=== PATIENT | female | born 1965 | race Caucasian/White ===

== ENCOUNTER 2020-02-14 10:48 | Outpatient (CLI) | payer OTHER, SELFPAY ==
--- NOTE | 2020-02-14 11:31 | MM_ITS ---
WS: [id number] DIAGNOSTIC RIGHT DIGITAL MAMMOGRAM WITH CAD RIGHT breast ultrasound, limited HISTORY: RIGHT FU 6 MON FOLLOWUP COMPARISON: 08/30/2019, 08/02/2019, 11/09/2016 Technique: CC, MLO and ML views. A compression RIGHT MLO and cc. Breast composition: There are scattered areas of fibroglandular density. Ovoid asymmetry posterior t o the RIGHT nipple persists without increase in size now measuring 5 x 8 mm. No additional abnormalit y. RIGHT breast ultrasound, limited. Ultrasound directed to the 12:00 axis, 1 cm from the nipple. There is an ovoid hypoechoic nodule yelena uring 8 x 4 mm. No increased vascularity. Similar in appearance to the prior study. There is a thin s eptation or this may be 2 cysts together. MM/[place] [id number] IMPRESSION: BI-RADS: 3-Probably Benign FOLLOW UP: 6 Month Follow-up Anticipate bilateral mammogram in July 2020. Ultrasound should be performe d of the RIGHT breast hypoechoic nodule at that time to document continued long -term stability.
== END 2020-02-14 10:49 | disposition home or self-care (01) ==
LOC: RADSHAW 10:48
PROVIDERS: Family Provider Family Medicine; PCP Family Medicine; Visit Provider Obstetrics & Gynecology
DX: R92.8 Other abnormal and inconclusive findings on diagnostic imaging of breast (principal); N63.10 Unspecified lump in the right breast, unspecified quadrant
CPT/HCPCS: 76642; 77065

== ENCOUNTER 2020-11-09 14:49 | Outpatient (CLI) | payer OTHER, SELFPAY ==
--- NOTE | 2020-11-09 15:00 | US_ITS ---
WS: [id number] BILATERAL DIGITAL DIAGNOSTIC MAMMOGRAM MAMMOGRAPHY WITH CAD CLINICAL INFORMATION: 6 MO F/U OVOID HYPOECHOIC AREA COMPARISON: February 14, 2020 TECHNIQUE: Bilateral CC, MLO, and ML views. FINDINGS: Scattered fibroglandular densities bilaterally. Previously described ovoid asymmetry posterior nipple measuring approximately 8 mm is not well seen today. No new abnormalities. Lucent centered calcifica tions. Left breast is unchanged in appearance. ULTRASOUND BREAST RIGHT TECHNIQUE: Ultrasound right breast focused area of concern. CLINICAL INFORMATION: 6 MO F/U OVOID HYPOECHOIC AREA COMPARISON: February 14, 2020 FINDINGS: Ultrasound right breast 12:00 position. Again seen is the small bilobed cyst at the 12:00 position me asuring 7.9 x 8.1 x 2.7 mm. This has a benign appearance. Recommend return to annual screening mammog randell. US/US breast RT limited* [id number] IMPRESSION: BI-RADS: 2-Benign FOLLOW UP: 1 Year Follow-up Recommend return to annual screening mammography.
--- NOTE | 2020-11-09 15:40 | MM_ITS ---
WS: [id number] BILATERAL DIGITAL DIAGNOSTIC MAMMOGRAM MAMMOGRAPHY WITH CAD CLINICAL INFORMATION: 6 MO F/U OVOID HYPOECHOIC AREA COMPARISON: February 14, 2020 TECHNIQUE: Bilateral CC, MLO, and ML views. FINDINGS: Scattered fibroglandular densities bilaterally. Previously described ovoid asymmetry posterior nipple measuring approximately 8 mm is not well seen today. No new abnormalities. Lucent centered calcifica tions. Left breast is unchanged in appearance. ULTRASOUND BREAST RIGHT TECHNIQUE: Ultrasound right breast focused area of concern. CLINICAL INFORMATION: 6 MO F/U OVOID HYPOECHOIC AREA COMPARISON: February 14, 2020 FINDINGS: Ultrasound right breast 12:00 position. Again seen is the small bilobed cyst at the 12:00 position me asuring 7.9 x 8.1 x 2.7 mm. This has a benign appearance. Recommend return to annual screening mammog randell. MM/[place] [id number] IMPRESSION: BI-RADS: 2-Benign FOLLOW UP: 1 Year Follow-up Recommend return to annual screening mammography.
== END 2020-11-09 14:50 | disposition home or self-care (01) ==
PROVIDERS: PCP Family Medicine; Visit Provider Obstetrics & Gynecology
DX: Z12.39 Encounter for other screening for malignant neoplasm of breast (principal); N60.01 Solitary cyst of right breast
CPT/HCPCS: 76642; 77066

== ENCOUNTER → 2021-01-21 09:45 | Outpatient (BNVA) | payer OTHER, SELFPAY | PROVIDERS: PCP Family Medicine; Visit Provider Obstetrics & Gynecology | DX: N87.0 Mild cervical dysplasia (principal) | CPT/HCPCS: 88175 ==

== ENCOUNTER 2021-02-12 15:22 | Outpatient (CLI) | payer OTHER, SELFPAY ==
--- NOTE | 2021-02-12 15:42 | USCV_ITS ---
Shabnam Loomis Age: 55 Gender: F : 1965 Exam Date: 02/12/2021 15:48 Ordering Phys: Torito Quinn MD Technologist: Ute Irving Exam Location: [facility] [place] Indication: BRADYCARDIA BP: / HR: 55 Rhythm: Other Technical Quality: Adequate MEASUREMENTS (Male / Female) Normal Values 2D ECHO LV Diastolic Diameter PLAX 4.2 cm 4.2 - 5.9 / 3.9 - 5.3 cm LV Systolic Diameter PLAX 3.3 cm LV Chamber Size 4.2 cm IVS Diastolic Thickness 1.1 cm 0.6 - 1.0 / 0.6 - 0.9 cm IVS Systolic Thickness 1.3 cm LVPW Diastolic Thickness 1.7 cm 0.6 - 1.0 / 0.6 - 0.9 cm LVPW Systolic Thickness 2.0 cm RV Chamber Size 2.3 cm LVOT Diameter 2.0 cm LV Ejection Fraction 2D Teich 41.9 % LV Ejection Fraction MOD 2C 44.4 % LV Ejection Fraction 2C AL 44.8 % LA Diameter 2.4 cm LA Width 3.5 cm LA Height 3.8 cm RA Width 2.1 cm RA Height 3.7 cm Aorta at Sinotubular Diameter 2.2 cm M-MODE LV Diastolic Diameter MM 5.5 cm 4.2 - 5.9 / 3.9 - 5.3 cm LV Systolic Diameter MM 4.3 cm LV Ejection Fraction MM Teich 42.8 % IVS Diastolic Thickness MM 0.9 cm 0.6 - 1.0 / 0.6 - 0.9 cm IVS Systolic Thickness MM 0.9 cm LVPW Diastolic Thickness MM 1.0 cm 0.6 - 1.0 / 0.6 - 0.9 cm LVPW Systolic Thickness MM 1.3 cm Aortic Annulus Diameter 2.6 cm LA Ao Ratio MM 0.9 MV E Point Septal Separation 1.0 cm DOPPLER AV Peak Velocity 161.0 cm/s LVOT Peak Velocity 149.0 cm/s AV Area Cont Eq vti 2.7 cm squared AV Area Cont Eq pk 2.9 cm squared MV Area PHT 5.8 cm squared Mitral E to A Ratio 0.8 MV E' Velocity 52.5 cm/s Mitral E to MV E' Ratio 5.9 Mitral E to LV E' Lateral Ratio 6.7 Mitral E to LV E' Septal Ratio 5.3 TR Peak Velocity 237.0 cm/s TR Peak Gradient 22.5 mmHg TV Peak E Velocity 43.0 cm/s Right Atrial Pressure 3.0 mmHg Pulmonary Artery Systolic Pressu 25.5 mmHg PV Peak Velocity 87.0 cm/s RV Acceleration Time 0.2 s RV Ejection Time 0.4 s RV AcT/ET 0.4 FINDINGS Left Ventricle Normal LV size with a diminished ejection fraction of 35 to 40%. Diffuse hypokinesia of the left ventricle Right Ventricle The right ventricle is normal in size and function. Right Atrium The right atrium is normal in size. Left Atrium The left atrium is normal in size. Mitral Valve Thickened mitral valve. Mild mitral annular calcification. Mild mitral valve regurgitation. Aortic Valve Thickened aortic valve. Trace aortic valve regurgitation. Tricuspid Valve Mild tricuspid valve regurgitation. Pulmonic Valve Pulmonic valve not well visualized. Pericardium Normal pericardium without effusion. Aorta Normal ascending aorta dimension. CONCLUSIONS Normal LV size with a diminished ejection fraction of 35 to 40%. Diffuse hypokinesia of the left ventricle. Thickened mitral valve. Mild mitral annular calcification. Mild mitral valve regurgitation. Thickened aortic valve. Trace aortic valve regurgitation. Mild tricuspid valve regurgitation. Estimated pulmonary artery peak systolic pressure 26 mmHg There is no pericardial effusion. There are no intracardiac masses. No previous study is available for comparison. Dr Santosh Schaeffer MD FAC (Electronically Signed) Final Date: 13 February 2021 10:18 S
== END 2021-02-12 15:23 | disposition home or self-care (01) ==
LOC: US 15:26
PROVIDERS: PCP Family Medicine; Visit Provider Family Medicine
DX: R00.1 Bradycardia, unspecified (principal); I08.3 Combined rheumatic disorders of mitral, aortic and tricuspid valves
CPT/HCPCS: 93306

== ENCOUNTER → 2021-02-15 11:53 | Outpatient (BNVA) | payer OTHER, SELFPAY | PROVIDERS: PCP Family Medicine; Visit Provider Obstetrics & Gynecology | DX: R87.810 Cervical high risk human papillomavirus (HPV) DNA test positive (principal) | CPT/HCPCS: 88305 ==

== ENCOUNTER → 2021-04-23 09:11 | Outpatient (BNVA) | payer OTHER, SELFPAY | PROVIDERS: PCP Family Medicine; Visit Provider Internal Medicine | DX: I50.20 Unspecified systolic (congestive) heart failure (principal); I10 Essential (primary) hypertension; I49.3 Ventricular premature depolarization | CPT/HCPCS: 80048; 85025; 85610; 87635 ==

== ENCOUNTER 2021-04-29 06:38 | Day surgery (SDC) | payer OTHER, SELFPAY ==
[2021-04-28 09:10] VITALS: BMI 27.2
[2021-04-29] VITALS (14 sets, daily range): BP systolic 101–165; BP diastolic 50–100; PULSE 65–101; RESP 18–23; TEMP 36.2; O2SAT 96–100; BMI 27.2
--- NOTE | 2021-04-29 06:00 | XACV_ITS ---
Ht: 157 cm Wt: 68 kg BSA: 1.74 m2 Gender: Female : 1965 Any Known Allergies: Other Exam Priority: Routine Procedure(s): Procedure Description: Diagnostic procedure Procedure Description: Left Heart Catheterization Procedure Description: Right Heart Catheterization Procedure Description: Left ventriculography Procedure Description: O2 saturation Procedure Description: Coronary Angiography Diagnostic Cath Status: Elective Diagnostic Findings * Right heart cath: RA: 7 mmHg PCW: 14 mmHg RV: 34/1012 PA: 35/10/06 Ao sat: 93% PA sat: 65%. * No disease noted in the Left Main, Left Anterior Descending, Right, or Circumflex coronary arteries. * Coronary angiography shows right dominance. Conclusions 1. Normal right and left-sided cardiac pressures. 2. Nonischemic cardiomyopathy. 3. No disease noted in the Left Main, Left Anterior Descending, Right, or Circumflex coronary arteries. 4. Moderate left ventricular systolic dysfunction. Ejection fraction of 30%. Recommendations * Aggressive guideline directed medical therapy for heart failure. * Outpatient cardiology follow-up in 1 month. Diagnostic RX Recommendation: medical therapy and/or counseling Anticoagulation: Heparin Ventriculography Ejection Fraction: 30.0 % Pressures Phase:Rest AO : 172 / 90 ( 120 ) @ 7:22:00 AM 183 / 88 ( 124 ) @ 7:31:00 AM LV : 186 / -1 / 21 @ 7:29:00 AM 181 / 0 / 23 @ 7:30:00 AM RV : 34 / 10 / 12 @ 7:09:00 AM PA : 35 / 11 ( 24 ) @ 7:08:00 AM RA : a wave = 8 v wave = 7 mean = 7 @ 7:10:00 AM PCW : a wave = 18 v wave = 20 mean = 14 @ 7:07:00 AM O2 Content Phase:Rest PA : O2 Content O2: 65.3 @ 7:22:00 AM Saturations Phase:Rest AO : 93 @ 7:31:00 AM PA : 65 @ 7:22:00 AM Cardiac Output Phase:Rest Shana : 4 @ 8:44:56 AM Shana Cardiac Index: 2 @ 8:44:56 AM Flow Phase:Rest Qp : 4 @ 8:44:56 AM Qs : 4 @ 8:44:56 AM Clinical Evaluation EBL: 5mL-10mL Procedural Details Pre-Procedure Time Out. Identified patient by full name and date of as verbalized by the patient/guarantor. Does the consent match the physician's order: Yes. Accurate & Complete Informed Consent: Yes. Inpatient/Outpatient History & Physical on Chart: Yes. If H&P is completed, is and addenduem needed: No; If yes, is the addendum complete: N/A. Visualize and Verify Site with Patient/Guarantor: N/A. Relevant Radiology Images available: N/A. Pre-op teaching completed and patient verbalized understanding. The risks, benefits, and alternatives of sedation and/or procedure were discussed by physician. The patient agrees to continue. Procedure started. Physician arrived. 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 Chest Pain Symptom Assessment: Atypical Angina. Cardiovascular Instability: No. Correct patient, site and procedure confirmed by cath team. PERRLA. Strong, equal hand microwave supervisor bilaterally. Lungs clear x 5 lobes. IV Site on Arrival: 20 gauge in the left hand. IV Site on Arrival: 18 gauge in the right anticubital. IV Fluids: 0.9% NaCl at KVO. 0 mL infused prior to director of labor and delivery. Pre Procedural Pulses: bilateral dorsalis pedis was 3+. Pre Procedural Pulses: right posterior tibial was Doppled. Pre Procedural Pulses: left posterior tibial was 3+. Pre Procedural Pulses: bilateral radial was 2+. Equipment: 6F - Radial. Cardiac Cath Pack. ACIST Manifold Kit Model BT 2000. Heparinized Saline (2 units/mL), 1000 mL bag. Baseline sample Acquired. HR: 61 BPM. right brachial was prepped with chloroprep then draped in the usual sterile fashion. right groin was prepped with chloroprep then draped in the usual sterile fashion. right radial was prepped with chloroprep then draped in the usual sterile fashion. Physician scrubbed in. Immediate Pre-Procedure Time Out. Correct Patient: Yes; Correct Procedure: Yes; Correct Site: Yes; Correct Patient Position: Yes; Correct Supplies: Yes; Dried Flammable Prep: Yes; Blood Products Available: N/A;. Wire inserted into IV catheter in right brachial vein. Lidocaine 1% infiltrated to the right brachial. IV catheter removed over wire. [place] MON catheter inserted. [place] out. Lidocaine 1% infiltrated to the right radial. Lidocaine 1% infiltrated to the right radial. Arterial access obtained. A 5 honduran TIG catheter in over wire. Multiple views taken of left coronary artery. Catheter redirected to the RCA. Catheter removed over the exchange wire. A 5 honduran Angled Pig catheter in over wire. EDP Sample taken: LV 186/-2,21; HR: 75 BPM; SpO2: 98%. LV gram performed in TAYLOR @ 10 mL/second for a total of 30 mL. EDP Sample taken: LV 181/0,23; HR: 80 BPM; SpO2: 98%. Pullback taken: LV Off; AO Off; Mean: , Peak to Peak: , SEP: ; HR: 79 BPM; SpO2: 98%. Catheter removed over the exchange wire. Physician scrubbed out. A Manual Compression was successful obtaining hemostatsis at the Right Brachial Vein insertion site. A TR Band was successful obtaining hemostatsis at the Right Radial artery insertion site. TR band placed. Hemostasis obtained. Sheath(s) removed and manual pressure held until hemostasis was achieved. Sterile 4x4 and Op-site applied to the puncture site. No oozing or hematoma noted. Post sheath removal instructions were given and the patient verbalized understanding. Post Procedure: Pulses reassessed and unchanged. PERRLA. Strong, equal hand microwave supervisor bilaterally. No VTE prophylaxis required. Medication's Wasted: Lidocaine 1% = 10 mL. Medication's Wasted: Nitro = 49.8 mg. Medication's Wasted: Heparin = 1000 units. Total IV fluids: 75 mL. Contrast type used: Omnipaque 300 mgI/mL, 500 mL bottle. Post-op diagnosis: non ischemic cardiomyopathy. Complications: none. Estimated blood loss: 5mL-10mL. Procedure completed. Patient transferred by wheelchair to CPRU. Vital chart was stopped. Access Site Site: Right Brachial Vein Sheath Size: 6 Fr Hemostasis Method: Manual Compression Hemostasis Success: Successful Site: Right Radial artery Sheath Size: 6 Fr Hemostasis Method: TR Band Hemostasis Success: Successful Procedure Medications Start: 7:41 AM Stop: 7:41 AM Medication: Aspirin Amount: 325 mg Route: P.O. Start: 7:48 AM Stop: 7:48 AM Medication: Benadryl Amount: 50 mg Route: I.V. Start: 7:49 AM Stop: 7:49 AM Medication: Versed Amount: 1 mg Route: I.V. Start: 7:50 AM Stop: 7:50 AM Medication: Fentanyl Amount: 50 mcg Route: I.V. Start: 7:52 AM Stop: 7:52 AM Medication: Versed Amount: 1 mg Route: I.V. Start: 8:18 AM Stop: 8:18 AM Medication: Nitrogylcerin Amount: 200 mcg Route: I.A. Start: 8:21 AM Stop: 8:21 AM Medication: Heparin Amount: 5000 units Route: I.V. Start: 8:34 AM Stop: 8:34 AM Medication: Fentanyl Amount: 50 mcg Route: I.V. I, the attending physician, have reviewed and verified all procedure medications. Yes, all medications given per verbal order History/Risk Factors Hypertension: Yes Dyslipidemia: No Peripheral Arterial Disease (PAD): No Myocardial Infarction (ME): No Obesity: No Renal Disease: No Tobacco Use: Never Prior Interventions PCI: No CABG: No Valve Surgery: No Report Signatures Finalized by John Castellon MD on 05/13/2021 08:57 PM
--- NOTE | 2021-04-29 07:43 | P.HP_ITS ---
Same Day Surgery H&P Indication for Procedure/HPI DATE OF PROCEDURE: April 29, 2021 CHIEF COMPLAINT/INDICATIONFOR SURGICAL PROCEDURE: New onset heart failure with reduced ejection fraction PREOP DIAGNOSIS: New onset heart failure with reduced ejection fraction PLANNED PROCEDRUE: Operation Date: 04/29/21 07:00 Proposed Procedures p Cardiac Catheterization 70998 I50.9 left and right(Bilateral) - John Castellon M.D Right heart catheterization Possible percutaneous coronary intervention 55-year-old woman with past medical history of hypertension who was referred because of new onset heart failure. Patient was having dyspnea on exertion and lower extremity edema. Echocardiogram revealed EF of 35 to 40% with diffuse hy pokinesis. Her EKG demonstrates frequent PVCs. She underwent Holter monitoring that showed frequent PVCs with no significant arrhythmias. In the recent past she had noted chest pain episodes but no active chest pain. Plan for a right and left heart cath to assess heart failure. ROS CONSTITUTIONAL: No fever chills weight loss or gain or night sweats. [] HEENT: Normocephalic, atraumatic.[] RESPIRATORY: No cough, sputum, hemoptysis or wheezing.[] CARDIOVASCULAR: No shortness of breath, chest pain, PND, orthopnea, lower extremity edema, presyncope or syncope. [] GI: no nausea vomiting diarrhea. 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 [] MUSCULOSKELETAL: No knee or joint pain or rashes. [] Medications/Allergies* Home Medications Medication Instructions Recorded Confirmed Type amlodipine 10 mg tablet 10 mg PO DAILY 01/21/21 04/29/21 History paroxetine HCl 10 mg tablet 10 mg PO DAILY 01/21/21 04/29/21 History venlafaxine 150 mg 150 mg PO BID cap 01/21/21 04/29/21 History capsule,extended release 24 hr venlafaxine 75 mg capsule,extended 75 mg PO .COMPLEX 01/21/21 04/29/21 History release 24 hr Allergies/Adverse Reactions Allergy/AdvReac Type Severity Reaction Status Date / Time tetracycline Allergy Rash Verified 04/28/21 09:10 Pertinent History/Comorbid Conditions* Medical History (Updated 03/26/21 @ 20:45 by John Castellon M.D) Depression Hypertension OCD (obsessive compulsive disorder) Surgical History (Updated 01/23/21 @ 15:13 by Fidel Sousa MD) History of bilateral tubal ligation (~1999) . Performed at [facility]. S/P laparoscopy (~1993) Infertility evaluation. Family History (Updated 01/21/21 @ 14:45 by Chau Sousa) Brother AIDS Brother Diabetes Grandfather Paternal. Type II. Daughter Type I. Heart disease Grandfather Maternal Hyperlipidemia Mother Neuropathy Brother Lung cancer Brother Hypertension Mother Father Social History Smoking and tobacco status: never smoked Alcohol intake: current Alcohol intake frequency: few times a week Pertinent Exam Findings alert, oriented x 3, clear to auscultation bilaterally and regular rate & rhythm Conscious Sedation Assessment PATIENT ASSESSED PRIOR TO SEDATION, WITH NO CHANGE NOTED: Yes AIRWAY EVAL/ANESTHESIA PLAN: normal airway, see other exam findings, ASA III, Monitored Anesthesia, Local Anesthesia, Risks, benefits & alternatives of sedation and/or procedure discussed and Patient agrees to continue as planned Recommendations Surgery/Procedure today (Right heart cath+ left heart cath+ possible percutaneous coronary intervention) Coding Level of Care Code Acute 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
--- NOTE | 2021-04-29 08:50 | PC.NURSE ---
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 pt complains of no pain. pt alert and oriented x4, pt has been educated and will continue to re-educate throughout recovery about restrictions of right wrist. pt has tr band on right wrist, no bruising or hematoma noted, distal pulse palpated. pt placed on monitor for vitals protocol. bed down and locked, side table near bed and call light within reach. pt given diet coke and breakfast tray to eat.
== END 2021-04-29 12:38 | disposition home or self-care (01) ==
PROVIDERS: PCP Family Medicine; Visit Provider Internal Medicine
DX: I11.0 Hypertensive heart disease with heart failure (principal); I50.9 Heart failure, unspecified; F32.9 Major depressive disorder, single episode, unspecified; Z82.49 Family history of ischemic heart disease and other diseases of the circulatory system; Z83.3 Family history of diabetes mellitus
CPT/HCPCS: 36415; 93453; C1751; C1769; C1887; C1894; J1200; J1644; J2250; J3010; J3490; J7030; J7050; Q9967

== ENCOUNTER 2021-11-10 13:25 | Outpatient (CLI) | payer OTHER, SELFPAY ==
--- NOTE | 2021-11-10 13:30 | USCV_ITS ---
Shabnam Loomis Age: 56 Gender: F : 1965 Exam Date: 11/10/2021 14:22 Ordering Phys: John Castellon M.D ([email or web address]) Technologist: Latonia Mendoza Exam Location: [facility] [place] Indication: chf BP: / HR: 56 Rhythm: Sinus Technical Quality: Adequate MEASUREMENTS (Male / Female) Normal Values 2D ECHO LV Diastolic Diameter PLAX 4.9 cm 4.2 - 5.9 / 3.9 - 5.3 cm LV Systolic Diameter PLAX 3.5 cm LV Chamber Size 4.4 cm IVS Diastolic Thickness 0.9 cm 0.6 - 1.0 / 0.6 - 0.9 cm IVS Systolic Thickness 1.3 cm LVPW Diastolic Thickness 1.1 cm 0.6 - 1.0 / 0.6 - 0.9 cm LVPW Systolic Thickness 1.6 cm RV Chamber Size 2.8 cm LVOT Diameter 2.1 cm LV Ejection Fraction 2D Teich 54.0 % LV Ejection Fraction MOD 2C 42.6 % LV Ejection Fraction 2C AL 45.8 % LA Diameter 2.7 cm LA Width 2.5 cm LA Height 4.2 cm RA Width 2.6 cm RA Height 3.8 cm Aorta at Sinotubular Diameter 2.4 cm M-MODE Aortic Annulus Diameter 2.8 cm LA Ao Ratio MM 1.1 MV E Point Septal Separation 1.0 cm DOPPLER AV Peak Velocity 125.0 cm/s LVOT Peak Velocity 62.3 cm/s AV Area Cont Eq vti 1.5 cm squared AV Area Cont Eq pk 1.7 cm squared MV Area PHT 2.4 cm squared Mitral E to A Ratio 1.0 MV E' Velocity 49.0 cm/s Mitral E to MV E' Ratio 11.2 Mitral E to LV E' Lateral Ratio 21.3 Mitral E to LV E' Septal Ratio 7.6 TR Peak Velocity 180.5 cm/s TR Peak Gradient 13.0 mmHg TR Mean Velocity 93.4 cm/s TR Mean Gradient 5.2 mmHg TR Velocity Time Integral 41.3 cm TV Peak E Velocity 53.0 cm/s PV Peak Velocity 43.0 cm/s RV Acceleration Time 0.1 s RV Ejection Time 0.4 s RV AcT/ET 0.3 FINDINGS Left Ventricle Normal left ventricular size. LV systolic function is borderline low with EF of 45-50%. Borderline global hypokinesis. Right Ventricle The right ventricle is normal in size and function. Right Atrium The right atrium is normal in size. Left Atrium The left atrium is normal in size. Mitral Valve Thickened mitral valve without significant stenosis or prolapse. There is mild mitral regurgitation. Aortic Valve Thickened aortic valve without significant stenosis. There is mild aortic regurgitation. Tricuspid Valve Structurally normal tricuspid valve without significant stenosis. Mild tricuspid regurgitation. Insufficient TR jet to calculate RVSP. Pulmonic Valve Not well visualized Pericardium Normal pericardium without effusion. Aorta Normal ascending aorta dimension. CONCLUSIONS LV systolic function is borderline low with EF of 45 to 50%. Borderline Global hypokinesis. Mild mitral regurgitation. Mild aortic regurgitation. Mild tricuspid regurgitation. Compared to prior echocardiogram from 02/12/2021, LV systolic function appears to have improved and EF is 45-50% now John Castellon MD (Electronically Signed) Final Date: 11 November 2021 10:55 S
== END 2021-11-10 13:26 | disposition home or self-care (01) ==
LOC: RAD 13:38
PROVIDERS: PCP Family Medicine; Visit Provider Internal Medicine
DX: I50.9 Heart failure, unspecified (principal); I08.3 Combined rheumatic disorders of mitral, aortic and tricuspid valves
CPT/HCPCS: 93306

== ENCOUNTER 2021-11-24 15:12 | Outpatient (CLI) | payer OTHER, SELFPAY ==
--- NOTE | 2021-11-24 15:18 | MM_ITS ---
WS: [id number] BILATERAL DIGITAL SCREENING MAMMOGRAPHY WITH CAD CLINICAL INFORMATION: SCREENING HISTORY: Screening mammogram. No current complaints. COMPARISON: November 09, 2020 TECHNIQUE: Bilateral CC and MLO views. FINDINGS: Scattered fibroglandular densities bilaterally. Punctate and lucent centered calcifications. Vascular calcification. No suspicious focal mass, asymmetry, calcifications, or architectural distortion. No evidence of malignancy. MM/[place] [id number] IMPRESSION: BI-RADS: 2-Benign FOLLOW UP: 1 Year Follow-up Recommend return to annual screening mammography.
== END 2021-11-24 15:13 | disposition home or self-care (01) ==
LOC: RADSHAW 15:18
PROVIDERS: PCP Family Medicine; Visit Provider Family Medicine
DX: Z12.31 Encounter for screening mammogram for malignant neoplasm of breast (principal)
CPT/HCPCS: 77067

== ENCOUNTER → 2022-08-26 15:22 | Outpatient (BNVA) | payer OTHER, SELFPAY | PROVIDERS: PCP Family Medicine; Visit Provider Obstetrics & Gynecology | DX: Z12.4 Encounter for screening for malignant neoplasm of cervix (principal); B97.7 Papillomavirus as the cause of diseases classified elsewhere | CPT/HCPCS: 87624 ==

== ENCOUNTER → 2022-09-26 13:26 | Outpatient (BNVA) | payer OTHER, SELFPAY | PROVIDERS: PCP Family Medicine; Visit Provider Obstetrics & Gynecology | DX: R87.611 Atypical squamous cells cannot exclude high grade squamous intraepithelial lesion on cytologic smear of cervix (ASC-H) (principal) | CPT/HCPCS: 88305 ==

== ENCOUNTER 2022-10-12 12:19 | Day surgery (SDC) | payer OTHER, SELFPAY ==
[2022-10-12] VITALS (7 sets, daily range): BP systolic 152–168; BP diastolic 86–100; PULSE 58–94; RESP 14–20; TEMP 36.5–36.8; O2SAT 97–100
[2022-10-12 13:18] LABS: Basophils % 0.5 %; Eosinophils # 0.2 10^3/uL (0.0-0.8); Eosinophils % 2.6 %; Hematocrit 41.3 % (37.0-47.0); Hemoglobin 13.8 g/dL (11.5-15.3); Lymphocytes # 1.8 10^3/uL (0.8-4.8); Lymphocytes % 27.4 %; Mean Corpuscular HGB Conc 33.4 g/dL (30.0-36.0); Mean Corpuscular Hemoglobin 30.5 pg (28.0-34.0); Mean Corpuscular Volume 91.4 fl (81-99); Mean Platelet Volume 9.4 fL (7.4-10.4); Monocytes # 0.4 10^3/uL (0.2-0.9); Monocytes % 6.5 %; Neutrophils # 4.04 10^3/uL (1.8-7.7); Neutrophils % 62.7 %; Nucleated Red Blood Cells % 0 %; Platelet Count 260 10^3/cmm (130-400); Red Blood Count 4.52 10^6/uL (4.1-5.3); Red Cell Distribution Width 13.5 % (12.1-15.1); White Blood Count 6.5 10^3/uL (4.0-10.0)
[2022-10-12] MEDS: sodium chloride 0.9% 500 ML IV (13:20)
[2022-10-12] MEDS: sodium chloride 0.9% 1,000 ML 30 ML IV (13:20)
[2022-10-12 13:28] LABS: Add Urine Microscopic? YES; Bilirubin Urine Neg (Negative); Blood Urine Neg (Negative); Glucose Urine UA Norm (Normal); Ketones Urine Negative (Negative); Leukocyte Esterase Urine Trace (Negative); Nitrate Urine Negative (Negative); Protein Urine 1+ (Negative); Urine Appearance Clear (CLEAR); Urine Color Yellow (Yellow); Urobilinogen Urine Norm (Negative); pH Urine 6 (5-7)
[2022-10-12 13:29] LABS: Add Urine Culture? No; Bacteria Urine TRACE /hpf; Squamous Epithelial Cell Urine 15-25 /hpf (0-5); WBC Urine 0-4 /hpf (0-5)
[2022-10-12 13:35] LABS: Alanine Aminotransferase 15 U/L (0-33); Albumin Level 4.5 g/dL (3.5-5.2); Alkaline Phosphatase 94 U/L (35-105); Anion Gap 14.2 (5-19); Aspartate Amino Transferase 17 U/L (0-32); Blood Urea Nitrogen 13 mg/dL (6-20); Calcium 9.9 mg/dL (8.5-10.5); Carbon Dioxide 26 mmol/L (22-29); Chloride 106 mmol/L (98-107); Globulin 3.2 g/dL (1.3-4.6); Glomerular Filtration Rate 64.3 mL/min (90-130); Glucose 89 mg/dL (65-115); Osmolality Calculated 294 mOsm/kg (285-295); Potassium 4.2 mmol/L (3.5-5.1); Sodium 142 mmol/L (136-145); Total Bilirubin 0.2 mg/dL (0.15-1.2); Total Protein 7.7 g/dL (6.6-8.7)
--- NOTE | 2022-10-12 13:40 | P.ANESASSM_ITS ---
Pre-Anesthetic Assessment Height/Weight: Height 1.57 m Weight 63.503 kg Temp Pulse Resp BP Pulse Ox O2 Del Method 98.1 F 58 L 18 167/100 97 10/12/22 12:43 10/12/22 12:43 10/12/22 12:43 10/12/22 12:43 10/12/22 12:43 10/12/22 12:44 Preop Diagnosis: Abnormal Pap: Atypical squamous cells cannot exclude high-grade Operation Date: 10/12/22 14:05 Proposed Procedures p Cervical cone biopsy 56517 R87.611(Not Applicable) - Tao Gutierrez MD Familial anesthetic complications: None Was Beta Augustina taken within 24 hours: N/A Was Clonidine taken within 24 hours: N/A Last intake: Intake Last Liquid Date 10/11/22 Last Liquid Time 22:00 Last Solid Date 10/11/22 Last Solid Time 19:00 Social No alcohol and No tobacco Exam alert, oriented x 3, clear to auscultation bilaterally and regular rate & rhythm Airway Mallampati: Class II Dentition: full CV/HEM Congestive Heart Failure (EF 45% able to achieve 4 METS), Hypertension and Palpitations Anesthetic Plan ASA status: 3 Anesthesia: General Risk of > 500 ml blood loss (7ml/kg in children): No Medications/Allergies Home Medications Medication Instructions Recorded Confirmed Last Taken Type paroxetine HCl 10 mg tablet (Paxil) 10 mg PO DAILY 01/21/21 10/11/22 10/11/22 History venlafaxine 150 mg 150 mg PO BID 01/21/21 10/11/22 10/11/22 History capsule,extended release 24 hr (Effexor XR) venlafaxine 75 mg capsule,extended 75 mg PO .COMPLEX 01/21/21 10/11/22 10/11/22 History release 24 hr (Effexor XR) lisinopril 20 mg tablet 20 mg PO DAILY #90 tabs 04/18/22 10/11/22 10/11/22 Rx metoprolol tartrate 25 mg tablet 25 mg PO BID #180 tabs 07/11/22 10/11/22 10/12/22 09:00 Rx Multi Vitamin 10/11/22 10/11/22 History docusate sodium 50 mg capsule 50 mg PO DAILY 10/11/22 10/11/22 10/11/22 History Allergies Allergy/AdvReac Type Severity Reaction Status Date / Time tetracycline Allergy Mild Rash Verified 10/11/22 09:27 Current Medications Generic Name Dose Route Start Last Admin Trade Name Matty PRN Reason Stop Dose Admin Sodium Chloride 1,000 mls @ 30 mls/hr 10/12/22 12:30 10/12/22 13:20 Sodium Chloride 0.9% IV 10/13/22 12:29 30 mls/hr .Q24H AARON Administration Sodium Chloride 500 mls @ 500 mls/hr 10/12/22 13:01 10/12/22 13:20 Sodium Chloride 0.9% IV 10/12/22 14:00 500 mls/hr ONCE ONE Administration PFS Anesthesia Medical History (Updated 09/26/22 @ 14:04 by Tao Gutierrez MD) Depression Hypertension Nonischemic cardiomyopathy OCD (obsessive compulsive disorder) Surgical History (Updated 08/26/22 @ 15:39 by Emely Hawkins RN) History of bilateral tubal ligation (~1999) . Performed at [facility]. S/P laparoscopy (~1993) Infertility evaluation. Family History Mother Hypertension Hyperlipidemia Father Hypertension Brother Neuropathy AIDS Lung cancer Grandfather Diabetes Paternal. Type II. Heart disease Maternal Daughter Diabetes Type I. Social History Smoking and tobacco status: never smoked Alcohol intake: current Alcohol intake frequency: few times a week Data Anesthesia 10/12/22 13:05 10/12/22 13:05 Short CBC 10/12/22 Range/Units 13:05 WBC 6.5 (4.0-10.0) 10^3/uL Hgb 13.8 (11.5-15.3) g/dL Hct 41.3 (37.0-47.0) % MCV 91.4 (81-99) fl Plt Count 260 (130-400) 10^3/cmm Neut % (Auto) 62.7 % Neut # (Auto) 4.04 (1.8-7.7) 10^3/uL BMP 10/12/22 13:05 Sodium 142 Potassium 4.2 Chloride 106 Carbon Dioxide 26 BUN 13 Creatinine 0.9 Glucose 89 Calcium 9.9 Liver Function 10/12/22 Range/Units 13:05 Total Bilirubin 0.2 (0.15-1.2) mg/dL AST 17 (0-32) U/L ALT 15 (0-33) U/L Alkaline Phosphatase 94 (35-105) U/L Albumin 4.5 (3.5-5.2) g/dL Urine 10/12/22 Range/Units 13:05 Urine Color Yellow (Yellow) Urine Appearance Clear (CLEAR) Urine pH 6 (5-7) Ur Specific [place] 1.020 (1.005-1.030) Urine Protein 1+ H (Negative) Urine Glucose (UA) Norm (Normal) Urine Ketones Negative (Negative) Urine Nitrate Negative (Negative) Urine Bilirubin Neg (Negative) Ur Leukocyte Esterase Trace H (Negative) Urine RBC None (0-2) /hpf Urine WBC 0-4 H (0-5) /hpf Cardiac Studies: Echocardiogram 11/10/21 Echocardiogram Ultrasound 02/12/21 Holter Monitor 01/29/21
--- NOTE | 2022-10-12 14:31 | W.PM.OPSUD ---
Surgery/Procedure H&P Update DATE OF PROCEDURE: October 30, 2022 DATE H&P PERFORMED: 09/26/22 H&P UPDATE INFORMATION: I have reviewed H&P completed within last 30 days, I have examined patient prior to procedure, No changes to prior documentation and Changes to prior documentation as noted here PREOP DIAGNOSIS: Abnormal Pap: Atypical squamous cells cannot exclude high-grade PLANNED PROCEDURE: Operation Date: 10/12/22 14:05 Proposed Procedures p Cervical cone biopsy 31086 R87.611(Not Applicable) - Tao Gutierrez MD
--- NOTE | 2022-10-12 17:00 | ANE.PACU2 ---
Inpatient post-anesthesia follow up: Airway intact: Yes Vital signs: Temperature 98.3 F Pulse Rate 78 Respiratory Rate 14 Blood Pressure 152/88 Pulse Oximetry 97 Oxygen Delivery Me thod Room Air Oxygen Flow Rate Fraction of Inspir ed Oxygen Hydration adequate: Yes Nausea and vomiting: No Pain level: 1 Mental status: Baseline
--- NOTE | 2022-10-12 17:11 | P.OP_ITS ---
Operative Report Date of procedure: October 12, 2022 Pre-op diagnosis: Preop Diagnosis Abnormal Pap: Atypical squamous cells cannot exclude high-grade Post-op diagnosis: same Procedure done: Cervical cone biopsy Specimens removed/disposition: Cervical cone Surgeon: Tao Gutierrez MD Estimated blood loss (mL): 5 IV fluids (mL): 700 Complications: None Procedure: After informed consent, the patient was taken to the operating room where general anesthesia was administered without difficulty. After administration of general anesthesia, the patient was placed in the dorsal lithotomy position, and prepped and draped in the usual sterile fashion. A time-out procedure was performed. The patient was examined under anesthesia and found to have a normal uterus with normal adnexa. A weighted speculum was then placed in the patient's vagina and the anterior lip of the cervix grasped with the singed toothed tenaculum A uterine sound was then advanced into the cervix to determine its direction and length. The decending cervical branchs of the uterine arteries were ligated with 2-0 Vicryl bilaterally at the level of the internal os. Attention was then turned to the cervix where it was stain with Lugol?s solution to hightlight the lesion. The paracervical area was then circumferentially infiltrated using Lidocaine 1% with epinephrine. A [employer] Cone Biopsy Excisor was used to cut the cone biopsy in circular fashion and following removal of the specimen a suture was placed at the 12 o?clock location and fixed in formalin. Bleeding was minimal. The patient tolerated the procedure well, sponge, lap and needle counts were correct times two She was taken to the recovery room in good condition.
[2022-10-12] MEDS: ibuprofen 800 mg tablet PO (17:38)
== END 2022-10-12 18:00 | disposition home or self-care (01) ==
PROVIDERS: PCP Family Medicine; Visit Provider Obstetrics & Gynecology
PROC: 0UB97ZZ Excision of Uterus, Via Natural or Artificial Opening (ICD-10-PCS; CPT 57520; principal; 2022-10-12 13:55)
DX: R87.610 Atypical squamous cells of undetermined significance on cytologic smear of cervix (ASC-US) (principal); I11.0 Hypertensive heart disease with heart failure; I50.9 Heart failure, unspecified
CPT/HCPCS: 57522; 80053; 81001; 85025; 86850; 86900; 88307; J1100; J2250; J2405; J2704; J3010; J3490; J7030; J7040

== ENCOUNTER 2023-05-18 14:19 | Outpatient (CLI) | payer OTHER, SELFPAY ==
--- NOTE | 2023-05-18 14:41 | MM_ITS ---
WS: [id number] BILATERAL SCREENING DIGITAL TOMOSYNTHESIS MAMMOGRAM WITH CAD HISTORY: SCREENING COMPARISON: 11/24/2021, 11/09/2020 and 08/02/2019 Bilateral CC and MLO views with tomosynthesis and synthetic mammography submitted. Computer aided det ection analyzed. Breast composition: There are scattered areas of fibroglandular density. No suspicious masses, microc alcifications or architectural distortion. Asymmetry in the lateral LEFT breast has been stable on mu ltiple prior exams. Benign calcifications and breast arterial calcifications. MM/[id number] IMPRESSION: BI-RADS: 2-Benign FOLLOW UP: 1 Year Follow-up
== END 2023-05-18 14:20 | disposition home or self-care (01) ==
LOC: RAD 14:22
PROVIDERS: PCP Family Medicine; Visit Provider Family Medicine
DX: Z12.31 Encounter for screening mammogram for malignant neoplasm of breast (principal)
CPT/HCPCS: 77063; 77067

== ENCOUNTER → 2023-06-05 13:13 | Outpatient (BNVA) | payer OTHER, SELFPAY | PROVIDERS: PCP Family Medicine; Visit Provider Internal Medicine | DX: I11.0 Hypertensive heart disease with heart failure (principal); I50.20 Unspecified systolic (congestive) heart failure; I49.3 Ventricular premature depolarization; I42.8 Other cardiomyopathies | CPT/HCPCS: 99214 ==

== ENCOUNTER 2024-05-27 10:00 | Outpatient (CLI) | payer BC, SELFPAY ==
--- NOTE | 2024-05-27 10:10 | MM_ITS ---
WS: [id number] BILATERAL SCREENING DIGITAL TOMOSYNTHESIS MAMMOGRAM WITH CAD HISTORY: SCREENING COMPARISON: 05/18/2023, 11/24/2021 and 08/02/2019 Bilateral CC and MLO views with tomosynthesis and synthetic mammography submitted. Computer aided det ection analyzed. Breast composition: There are scattered areas of fibroglandular density. No suspicious masses, microc alcifications or architectural distortion. Asymmetry in the upper outer quadrant of the LEFT breast i s stable. Benign calcifications in each breast. MM/[place] [id number] IMPRESSION: BI-RADS: 2-Benign FOLLOW UP: 1 Year Follow-up
== END 2024-05-27 10:07 | disposition home or self-care (01) ==
PROVIDERS: PCP Family Medicine; Visit Provider Family Medicine
DX: Z12.31 Encounter for screening mammogram for malignant neoplasm of breast (principal); R92.323 Mammographic fibroglandular density, bilateral breasts; N64.89 Other specified disorders of breast; R92.1 Mammographic calcification found on diagnostic imaging of breast
CPT/HCPCS: 77063; 77067

== ENCOUNTER 2024-11-05 13:24 | Outpatient (CLI) | payer BC, OTHER, SELFPAY ==
--- NOTE | 2024-11-05 13:27 | XR_ITS ---
WS: [id number] DEXA (DUAL ENERGY X-RAY ABSORPTIOMETRY) Bone mineral density was performed using a [employer] machine. HISTORY: POSTMENOPAUSAL COMPARISON: None available. Lumbar spine BMD (L1-L4): 1.157 g/cm2 T score: -0.2 Z score: 0.8 Total hip BMD: Left: 0.889 g/cm2. T score: -0.9 Z score: -0.2 Right: 0.904 g/cm2. T score: -0.8 Z score: -0.1 10 year probability of a major osteoporotic fracture is 11.0%. XR/XR DEXA axial skeleton* [id number] IMPRESSION: NORMAL BONE MINERAL DENSITY based upon the WHO classification for females.
== END 2024-11-05 13:25 | disposition home or self-care (01) ==
LOC: RAD 13:24
PROVIDERS: PCP Family Medicine; Visit Provider Family Medicine
DX: Z13.820 Encounter for screening for osteoporosis (principal); Z78.0 Asymptomatic menopausal state
CPT/HCPCS: 77080

== ENCOUNTER 2025-05-29 13:11 | Outpatient (CLI) | payer BC, OTHER, SELFPAY ==
--- NOTE | 2025-05-29 13:16 | MM_ITS ---
WS: [id number] SCREENING DIGITAL TOMOSYNTHESIS MAMMOGRAM WITH CAD HISTORY: SCREENING COMPARISON: 05/27/2024, 05/18/2023 Bilateral CC and MLO with tomosynthesis views submitted. Synthetic mammography reviewed. Computer aided detection analyzed. Breast composition: There are scattered areas of fibroglandular density. No suspicious masses, microcalcifications or architectural distortion. Coarse benign calcifications in each breast. No suspicious grouping of calcification or distortion. MM/MM scr tomosynthesis [id number] IMPRESSION: BI-RADS: 2 - Benign. FOLLOW UP: 1 Year Follow-up
== END 2025-05-29 13:12 | disposition home or self-care (01) ==
LOC: RAD 13:11
PROVIDERS: PCP Family Medicine; Visit Provider Family Medicine
DX: Z12.31 Encounter for screening mammogram for malignant neoplasm of breast (principal); Z12.4 Encounter for screening for malignant neoplasm of cervix
CPT/HCPCS: 77063; 77067; 87624

== ENCOUNTER → 2025-06-10 08:45 | Outpatient (BNVA) | payer BC, OTHER, SELFPAY | PROVIDERS: PCP Family Medicine; Visit Provider Obstetrics & Gynecology | DX: R10.2 Pelvic and perineal pain (principal) | CPT/HCPCS: 76830 ==

== ENCOUNTER → 2025-10-07 15:18 | Outpatient (BNVA) | payer BC, OTHER, SELFPAY | PROVIDERS: PCP Family Medicine; Visit Provider Orthopaedic Surgery | DX: S82.402A Unspecified fracture of shaft of left fibula, initial encounter for closed fracture (principal); W19.XXXA Unspecified fall, initial encounter | CPT/HCPCS: 73590 ==

== ENCOUNTER → 2025-10-21 15:31 | Outpatient (BNVA) | payer BC, OTHER, SELFPAY | PROVIDERS: PCP Family Medicine; Visit Provider Orthopaedic Surgery | DX: M25.572 Pain in left ankle and joints of left foot (principal); S99.912D Unspecified injury of left ankle, subsequent encounter; W19.XXXD Unspecified fall, subsequent encounter | CPT/HCPCS: 73610 ==

== ENCOUNTER → 2025-11-11 14:35 | Outpatient (BNVA) | payer BC, OTHER, SELFPAY | PROVIDERS: PCP Family Medicine; Visit Provider Orthopaedic Surgery | DX: S82.899D Other fracture of unspecified lower leg, subsequent encounter for closed fracture with routine healing (principal); W19.XXXD Unspecified fall, subsequent encounter | CPT/HCPCS: 73610 ==